=== PATIENT | male | born 1970 | race African-American/Black ===

== ENCOUNTER 2016-11-22 02:33 | Emergency (ER) | payer OTHER ==
[~2016-11-22] VITALS: Ht 175.3 cm; Wt 98.0 kg
[2016-11-22 03:25] LABS: EOSINOPHIL COUNT 0.3 K/uL (0-0.3); HEMATOCRIT 41.6 % (38.0-50.0); IMMATURE GRANULOCYTE (%) 0.2 % (0.0-0.7); INSTRUMENT ABS NEUTROPHIL CT 1.9 K/uL; LYMPHOCYTE COUNT 1.9 K/uL (1.0-2.8); MCHC 33.4 G/DL (30.0-36.0); MCV 83.7 FL (86-99); MEAN PLAT.VOLUME 11.2 uM^3 (9.0-12.4); MONOCYTE COUNT 0.5 K/uL (0-0.8); NEUTROPHIL (%) 40.4 % (45-76); NEUTROPHIL COUNT 1.9 K/uL (1.8-6.4); PLATELET COUNT 229 K/uL (156-360); RBC DIS.WIDTH-CV 11.9 % (11.8-14.6); RBC DIS.WIDTH-SD 36.4 % (39-53); RED BLOOD COUNT 4.97 M/uL (4.00-5.50); WHITE BLOOD COUNT 4.7 K/uL (4.1-10.2)
[2016-11-22 03:38] LABS: D-DIMER ELISA < 0.15 mg/L FEU (< 0.57)
[2016-11-22 03:41] LABS: CHLORIDE 106 mEq/L (99-109); SODIUM 140 mEq/L (136-147)
[2016-11-22 03:43] LABS: GLUCOSE 129 mg/dL (70-99)
[2016-11-22 03:44] LABS: ANION GAP 8 MEQ/L (2-14)
[2016-11-22 03:46] LABS: TROP-I INTERPRETATION NEGATIVE; TROPONIN-I < 0.01 ng/mL (0.0-0.30)
[2016-11-22 03:47] LABS: UREA NITROGEN (BUN) 16 mg/dL (9-23)
[2016-11-22 03:48] LABS: GFR ESTIMATE (CALCULATED) > 59 mL/min/
[2016-11-22 06:19] LABS: TROP-I INTERPRETATION NEGATIVE; TROPONIN-I < 0.01 ng/mL (0.0-0.30)
[2016-11-22 06:41] VITALS: BP 116/68
== END 2016-11-22 06:42 | disposition home or self-care (01) ==
LOC: EME 02:33
PROVIDERS: Emergency Medicine
DX: R07.9 Chest pain, unspecified (principal); R00.2 Palpitations; R06.00 Dyspnea, unspecified
CPT/HCPCS: 71020; 80048; 84484; 85025; 85379; 93005; 99281; 99284

== ENCOUNTER 2018-03-26 13:15 | Emergency (ER) | payer OTHER ==
[~2018-03-26] VITALS: Ht 175.3 cm; Wt 104.3 kg
[2018-03-26] MEDS ORDERED: FLEXERIL10 MG PO (15:02)
[2018-03-26] MEDS ORDERED: NORCO 5/3251 TABLET PO (15:02)
[2018-03-26] MEDS ORDERED: MOTRIN600 MG PO (15:02)
[2018-03-26 15:21] VITALS: BP 113/70
== END 2018-03-26 15:22 | disposition home or self-care (01) ==
LOC: EME 13:15
DX: M54.5 Low back pain (principal); Z88.0 Allergy status to penicillin
CPT/HCPCS: 99281; 99283